=== PATIENT | male | born 1960 | race African-American/Black ===

== ENCOUNTER 2022-08-03 07:47 | Emergency (ER) | payer BC, SELFPAY ==
[2022-08-03 07:56] VITALS: BP 145/79; PULSE 98; RESP 18; TEMP 37.6; O2SAT 96; BMI 33.1
--- NOTE | 2022-08-03 08:06 | ED_ITS ---
HPI - General Adult General Chief complaint: Cough Stated complaint: Tightness in chest and bad cough Time Seen by Provider: 08/03/22 07:59 History of Present Illness HPI narrative: This 61-year-old male comes in reporting 2 days of harsh cough and chest congestion. He does not report any fever or shortness of breath. He does arrive with a temperature of 99.7?. Related Data Home Medications Medication Instructions Recorded Confirmed amlodipine 10 mg tablet mg 08/03/22 atorvastatin 20 mg tablet mg 08/03/22 famotidine 40 mg tablet mg 08/03/22 glimepiride 2 mg tablet mg 08/03/22 losartan 25 mg tablet mg 08/03/22 metformin 1,000 mg tablet mg 08/03/22 pantoprazole 40 mg tablet,delayed mg PO 08/03/22 release potassium chloride 10 mEq meq PO 08/03/22 tablet,extended release Previous Rx's Medication Instructions Recorded acetaminophen 300 mg-codeine 30 mg 1 tab PO Q6H PRN pain #20 tabs 08/03/22 tablet oseltamivir 75 mg capsule (Tamiflu) 75 mg PO BID 5 days #10 caps 08/03/22 Allergies Allergy/AdvReac Type Severity Reaction Status Date / Time No Known Drug Allergies Allergy Verified 08/03/22 07:59 Review of Systems Status of ROS: Reports: 10 or more systems reviewed and unremarkable except as noted in History and below Narrative: Constitutional: No fevers, no weight gain or loss. Eyes: No discharge. No vision changes. HENT: No congestion, no sore throat, no ear pain. Cardiovascular: No palpitations. Respiratory: No shortness of breath, no wheezes. Frequent painful cough. Gastrointestinal: No abdominal pain, no vomiting, no diarrhea. Genitourinary: No dysuria, no hematuria. Musculoskeletal: Normal range of motion. Skin: No rashes, no pruritis. Neurological: No dizziness, weakness, sensory change, speech change. Endo/Heme/Allergies: No bruising or bleeding. No polydipsia. Pysch: no suicidality, no anxiety, no insomnia. All other systems reviewed and are negative. [facility] Social History Do you use any of these nicotine containing products: None Non-prescribed substance use: denies use Exam Narrative: Exam Narrative: Constitutional: Well-developed, well-nourished, no acute distress. HEENT: Normocephalic, atraumatic. Neck: Normal range of motion. Nontender. Supple. Heart: Regular. No murmurs. Normal rate. Intact distal pulses. Lungs: Clear to auscultation. No chest discomfort. No wheezes, rhonchi, or rales. Abdomen: Normal bowel sounds. Nontender. No rebound tenderness. Genitalia: Deferred. Back: No midline tenderness. Normal range of motion. Extremities: Normal range of motion. No injury. Skin: Intact. No rash. Warm. No erythema or pallor. Neurologic: No altered sensation. No weakness. Alert and oriented. Psychiatric: No suicidality. No anxiety or depression. No insomnia. Nursing notes and vitals signs are reviewed. Const: Vital Signs, click to edit/add: Vital Signs - 24 hr 08/03/22 07:56 Temperature 99.7 F H Pulse Rate [Right Pulse Oximeter] 98 Respiratory Rate 18 Blood Pressure [Ri ght Upper Arm] 145/79 H Pulse Oximetry 96 Oxygen Delivery Me thod Room Air Course Vital Signs Vital signs: Initial Vital Signs Temperature 99.7 F H 08/03/22 07:56 Temperature Source Temporal Artery Scan 08/03/22 07:56 Pulse Rate 98 08/03/22 07:56 Respiratory Rate 18 08/03/22 07:56 Blood Pressure 145/79 H 08/03/22 07:56 Blood Pressure Mean 101 08/03/22 07:56 Blood Pressure Position Sitting 08/03/22 07:56 Pulse Oximetry 96 08/03/22 07:56 Oxygen Delivery Method 08/03/22 07:56 Vital Signs Temperature 99.7 F H 08/03/22 07:56 Pulse Rate 98 08/03/22 07:56 Respiratory Rate 18 08/03/22 07:56 Blood Pressure 145/79 H 08/03/22 07:56 Pulse Oximetry 96 08/03/22 07:56 Oxygen Delivery Method 08/03/22 07:56 Temperature 99.7 F H 08/03/22 07:56 Pulse Rate 98 08/03/22 07:56 Respiratory Rate 18 08/03/22 07:56 Blood Pressure 145/79 H 08/03/22 07:56 Pulse Oximetry 96 08/03/22 07:56 Oxygen Delivery Method 08/03/22 07:56 Medical Decision Making MDM Narrative Medical decision making narrative: This patient comes in with upper respiratory symptoms. Nasal pharyngeal swab returns positive for influenza A. This patient is a candidate for Tamiflu. This is prescribed along with Tylenol 3. Lab Data Labs: Lab Results 08/03/22 Range/Units 08:13 SARS-CoV-2 (PCR) Negative SARS-CoV-2 (Negative) Influenza Type A (PCR) POSITIVE PCR FLU A A (Negative) Influenza Type B (PCR) Negative PCR FLU B (Negative) RSV (PCR) Negative PCR RSV (Negative) Discharge Plan Discharge Clinical Impression: Influenza A Patient Disposition: Home, Self-Care Condition: Unchanged Additional Instructions: Take medication as prescribed. Follow up with MD or return if worsening. Prescriptions: New acetaminophen-codeine 300-30 mg tablet 1 tab PO Q6H PRN (Reason: pain) Qty: 20 0RF oseltamivir [Tamiflu] 75 mg capsule 75 mg PO BID 5 Days Qty: 10 0RF No Action atorvastatin 20 mg tablet famotidine 40 mg tablet Label Comments: TAKE 1 TABLET BY MOUTH DAILY potassium chloride 10 mEq tablet extended release PO glimepiride 2 mg tablet amlodipine 10 mg tablet pantoprazole 40 mg tablet,delayed release (DR/EC) PO metformin 1,000 mg tablet losartan 25 mg tablet Follow Up/Referrals: Provider,Not a Local [Primary Care Provider] - Stand Alone Forms: [employer] Info Instructions
[2022-08-03 09:10] LABS: PCR FLU A POSITIVE PCR FLU A (Negative); PCR FLU B Negative PCR FLU B (Negative); PCR RSV Negative PCR RSV (Negative)
[2022-08-03 09:12] LABS: SARS PCR* Negative SARS-CoV-2 (Negative)
== END 2022-08-03 09:55 | disposition home or self-care (01) ==
PROVIDERS: Emergency Provider Emergency Medicine Emergency Medical Services
DX: J09.X2 Influenza due to identified novel influenza A virus with other respiratory manifestations (principal)
CPT/HCPCS: 87502; 87634; 87635; 99283; 99284

== ENCOUNTER 2025-04-24 14:29 | Emergency (ER) | payer BC, SELFPAY ==
--- OUTSIDE RECORDS SUMMARY | 2016-08-28 15:48 | XMS_ITS | Continuity of Care Document ---
Author Name [facility] Organization [facility] Care Team Providers Care Quality Improvement Analyst Name Role Phone [facility] Unavailable Unavailable Problems Combined list of problems from [facility] and [facility] facilities. It does not include entries that were removed or entered in error. Problem Status Onset Date Problem Type Date of Resolution Comments Source Diabetes mellitus [facility] Gastro-esophageal reflux disease Active Condition [facility] Hyperlipidemia Active Condition [facility] Hypertensive disorder Active Condition [facility] Allergies, Adverse Reactions, Alerts Combined list of allergies from [facility] and [facility] facilities. It does not include entries that were removed or entered in error. Substance Category Reaction Severity Reaction type Status Date Reported Comments Source BENZONATATE Propensity to adverse reactions to drug (finding) Swelling of upper limb MODERATE active 6 [facility] LISINOPRIL Propensity to adverse reactions to drug (finding) Lip swelling active 7 [facility] Social History Combined list of available smoking, tobacco, and other social history from [facility] and [facility] facilities. Social History Type Response Date Comment Sourc e Tobacco smoking status NHIS LIFETIME NON-TOBACCO USER 04/02/2016 [facility]
--- OUTSIDE RECORDS SUMMARY | 2016-08-28 15:48 | XMS_ITS | Continuity of Care Document ---
Author Name [facility] Organization [facility] Care Team Providers Care Therapist Radiation Name Role Phone [facility] Unavailable Unavailable Problems Combined list of problems from [facility] and [facility] facilities. It does not include entries that were removed or entered in error. Problem Status Onset Date Problem Type Date of Resolution Comments Source Diabetes mellitus Active [facility] Gastro-esophageal reflux disease Active Condition [facility] Hyperlipidemia Active Condition [facility] Hypertensive disorder Active Condition [facility] Allergies, Adverse Reactions, Alerts Combined list of allergies from [facility] and [facility] facilities. It does not include entries that were removed or entered in error. Substance Category Reaction Severity Reaction type Status Date Reported Comments Source BENZONATATE Propensity to adverse reactions to drug (finding) Swelling of upper limb MODERATE active 6 [facility] LISINOPRIL Propensity to adverse reactions to drug (finding) Lip swelling active 7 [facility] Social History Combined list of available smoking, tobacco, and other social history from [facility] and [facility] facilities. Social History Type Response Date Comment Sourc e Tobacco smoking status NHIS LIFETIME NON-TOBACCO USER 04/02/2016 [facility]
--- OUTSIDE RECORDS SUMMARY | 2021-01-09 23:30 | XMS_ITS | Continuity of Care Document ---
Author Organization [facility] Address [address] [address] [place] [address] Phone Care Team Providers Care Manager Shell Name Role Phone No Information Unavailable Unavailable Medications Medication Instructions Dosage Effective Dates (start - stop) Status Comments amlodipine 10 mg tablet take 1 tablet by oral route every day 10 MG - Active atorvastatin 10 mg tablet take 1 tablet by oral route every day 10 MG - Active Flonase 50 mcg/actuation nasal spray,suspension spray 2 spray by Intranasal route every day in each nostril 2 spray - Active Prilosec 40 mg Cap take one tablet po qday. - Active Procedures Procedure Date Colonoscopy Flex; W/remov Les- 14 Ugi Endo; W/bx 1/mx Level Iv-surg Path Gross/micro 14 Ugi Endo; W/bx 1/mx Level Iv-surg Path Gross/micro 09 Ugi Endo; W/bx 1/mx Level Iv-surg Path Gross/micro 07 Advance Directives Directive Yes / No Effective Date File Name No Information Encounters Encounter Description Practice Location Reason(s) For Visit Diagnoses Date Provider Providers Copied on Encounter [facility], [address] [address], [place], [id number], tel:[phone] No Information No Information [facility], [address] [address], [place], [id number], [place] tel:[phone] [facility] Colon polypDiverticulo sis of colon w/o diverticulitisBa rrett's esophagusHiatal herniaColon Cancer ScreeningHiatal HerniaBarrett's EsophagusBenign Neoplasm Colon 4 No Information Referring Provider: Waldo Mcclendon MD, [address], [place], [address]. tel:[phone] [facility] [address], [address] [address], [place], [place], [id number], tel:[phone] [facility] Hiatal HerniaBarrett's EsophagusBarrett 's EsophagusHiatal Hernia [address]. [address] [place] [address], [id number], [place]. tel:[phone] Referring Provider: Waldo Mcclendon MD, [address], [place], [address]. tel:[phone] [facility], [address] [address], [place], [place], [id number], [place] tel:[phone] [facility] Vogel's EsophagusHiatal HerniaGastroesop hageal Reflux No Information Referring Provider: Waldo Mcclendon MD, [address], [place], [address]. tel:[phone] Family History Family Member Type Diagnosis Age At Onset Daughter Problem (finding) Alive and well Father Problem (finding) Mother Problem (finding) Son Problem (finding) Alive and well Sister Problem (finding) Brother Problem (finding) Alive and well Payers Payer name Insurance type Covered republican ID Authoriza tion(s) No Information Social History Type Description Quantity Date Captured Comments Sex Male Smoking Status No Information Chief Complaint And Reason For Visit No Information Reason For Referral Reason For Referral No Information History Of Present Illness Encounter Date Complaint History Of Prese nt Illness No Information Functional Status Date Functional Assessmen t No Information Instructions Date Instruction Additional Infor mation Colon Cancer Prevention Related to Colon polyp Colon Polyps Related to Colon polyp Diverticulosis/Diverticulitis Re lated to Colon polyp Hiatal Hernia Related to Colon polyp High Fiber Diet Related to Colon polyp Vogel's Esophagus Related to C olon polyp Assessments Type Assessment Date No Information Patient Care Teams Name Effective Dates (start - stop) Status Members No Information
--- OUTSIDE RECORDS SUMMARY | 2021-01-09 23:30 | XMS_ITS | Continuity of Care Document ---
Author Organization [facility] Address [address] [address] [place] [address] Phone Care Team Providers Care Primary Operator Name Role Phone No Information Unavailable Unavailable [...] Diagnoses Date Provider Providers Copied on Encounter [facility], [address] [address], [place], [id number], tel:[phone] No Information No Information [facility], [address] [address], [place], [id number], [place] tel:[phone] [facility] Colon polypDiverticulo sis of colon w/o diverticulitisBa rrett's esophagusHiatal herniaColon Cancer ScreeningHiatal HerniaBarrett's EsophagusBenign Neoplasm Colon 4 No Information Referring Provider: Waldo Mcclendon MD, [address], [place], [address]. tel:[phone] [facility], [address] [address], [place], [place], [id number], tel:[phone] [facility] Hiatal HerniaBarrett's EsophagusBarrett 's EsophagusHiatal Hernia [address]. [address] [place] [address], [id number], [place]. tel:[phone] Referring Provider: Waldo Mcclendon MD, [address], [place], [address]. tel:[phone] [facility] [employer] [facility], [address] [address], [place], [place], [id number], [place] tel:[phone] [facility] Vogel's EsophagusHiatal HerniaGastroesop hageal Reflux No Information Referring Provider: Waldo Mcclendon MD, [address], [place], [address]. tel:[phone] Family History Family Member Type Diagnosis Age [...]
--- OUTSIDE RECORDS SUMMARY | 2025-04-24 14:31 | XMS_ITS | Clinical Summary ---
Author Organization [facility] Address [address] [place] [address] Care Team Providers Care Information Security Engineer Name Role Phone Robert Garcia Unavailable [phone] [place] Unavailable Waldo Mcclendon MD Primary Care Provider Allergies Active Allergy Reactions Criticality Noted Date Comments Benzonatate Edema 03/18/2016 Lip Edema Lisinopril Angioedema 08/22/2016 Lip edema Medications blood-glucose meterIndications:D iabetes mellitus without complication (HC) Dispense meter, test strips, lancets covered by pt ins. 1 Device 0 6 Active blood-glucose meterIndications:T ype 2 diabetes mellitus without complication, without long-term current use of insulin (HC) Inject subcutaneous . Dispense meter, test strips, lancets covered by pt ins. 1 Device 0 Active lancetsIndications :Type 2 diabetes mellitus without complication, without long-term current use of insulin (HC) As directed. Test 3 times per day. 300 Each 3 0 Active Accu-Chek Guide test strips stripIndications:D iabetes mellitus without complication (HC) TEST 3 TIMES PER DAY 300 Each 3 2 Active fluticasone (50 mcg per actuation) nasal solution (FLONASE)Indicatio ns:Vasomotor rhinitis Inhale 1 [place] into affected nostril(s) once daily As needed 16 g 4 Active CPAPIndications:ob structive sleep apnea syndrome CPAP machine for home use at pressure 5-16, nasal mask x1/3month with nasal cushion x2/mo 1 Each 5 Active famotidine 40 mg tabletIndications: Chronic GERD,Hiatal hernia TAKE 1 TABLET BY MOUTH DAILY 90 Tablet 2 5 Active pantoprazole 40 mg delayed-release tabletIndications: Chronic GERD TAKE 1 TABLET BY MOUTH DAILY 90 Tablet 1 5 Active blood sugar diagnostic (Blood Glucose Test) stripIndications:T ype 2 diabetes mellitus without complication, without long-term current use of insulin (HC) Test 1 times per day. 100 Each 12 5 Active lancetsIndications :Type 2 diabetes mellitus without complication, without long-term current use of insulin (HC) Dispense item covered by pt ins. 100 Each 3 5 Active amLODIPine (NORVASC) 10 mg tabletIndications: Essential hypertension Take 1 Tablet (10 mg) by mouth once daily. 90 Tablet 4 5 Active atorvastatin (LIPITOR) 20 mg tabletIndications: Mixed hyperlipidemia Take 1 Tablet (20 mg) by mouth once daily. 90 Tablet 4 5 Active empagliflozin (Jardiance) 25 mg tabletIndications: Type 2 diabetes mellitus without complication, without long-term current use of insulin (HC) Take 1 Tablet (25 mg) by mouth once daily. 90 Tablet 1 5 Active glimepiride (AMARYL) 2 mg tabletIndications: Type 2 diabetes mellitus without complication, without long-term current use of insulin (HC) Take 1 Tablet (2 mg) by mouth once daily with a meal. 90 Tablet 1 5 Active potassium chloride (K-TAB) 10 mEq extended-release tabletIndications: Hypokalemia Take 3 Tablets (30 mEq) by mouth two times daily with meals. 540 Tablet 4 5 Active losartan (COZAAR) 50 mg tabletIndications: Persistent proteinuria Take 1 Tablet (50 mg) by mouth once daily. 90 Tablet 3 5 Active hydroCHLOROthiazid e 12.5 mg tabletIndications: Essential hypertension Take 1 Tablet (12.5 mg) by mouth once daily. 90 Tablet 3 5 Active lancetsIndications :Diabetes mellitus without complication (HC) Dispense item covered by pt ins. 100 Each 3 6 025 Discontin ued(Reord er (E-cancel not sent)) amLODIPine (NORVASC) 10 mg tabletIndications: Essential hypertension Take 1 Tablet (10 mg) by mouth once daily. 90 Tablet 4 4 025 Discontin ued(Reord er (E-cancel not sent)) atorvastatin (LIPITOR) 20 mg tabletIndications: Mixed hyperlipidemia Take 1 Tablet (20 mg) by mouth once daily. 90 Tablet 4 4 025 Discontin ued(Reord er (E-cancel not sent)) potassium chloride (K-TAB) 10 mEq extended-release tabletIndications: Low blood potassium Take 3 Tablets (30 mEq) by mouth two times daily with meals. 540 Tablet 4 4 025 Discontin ued(Reord er (E-cancel not sent)) empagliflozin (Jardiance) 25 mg tabletIndications: Type 2 diabetes mellitus without complication, without long-term current use of insulin (HC) Take 1 Tablet (25 mg) by mouth once daily. 90 Tablet 1 5 025 Discontin ued(Reord er (E-cancel not sent)) glimepiride (AMARYL) 2 mg tabletIndications: Type 2 diabetes mellitus without complication, without long-term current use of insulin (HC) Take 1 Tablet (2 mg) by mouth once daily with a meal. 90 Tablet 1 5 025 Discontin ued(Reord er (E-cancel not sent)) hydroCHLOROthiazid e 25 mg tabletIndications: Essential hypertension Take 0.5 Tablets (12.5 mg) by mouth once daily. 15 Tablet 5 025 Discontin ued(Reord er (E-cancel not sent)) losartan 25 mg tabletIndications: Persistent proteinuria Take 1 Tablet (25 mg) by mouth once daily. 90 Tablet 07/02/ 025 Discontin ued(Reord er (E-cancel not sent)) Active Problems Problem Noted Date Diagnosed Date Hypokalemia 04/08/2025 Hyperopia of both eyes with astigmatism and pres byopia 04/11/2022 Cortical senile cataract, bilateral 08/31/2019 Essential hypertension 2018 Type 2 diabetes mellitus without complications 0 03/28/2016 Mixed hyperlipidemia 12/14/2009 Hole, retinal 03/08/2009 Del Toro's esophagus 09/15/2008 Overview (05/29/2021): [place] [facility] Last EGD 2013 DEL TORO'S ESOPHAGUS- No Dysplasia. EGD EVERY 3 YEARS EGD 05/2021 Del Toro's, repeat EGD in 3 years Diaphragmatic hernia without mention of obstruction or gangrene 03/11/2007 Esophageal reflux 01/29/2006 Overview (09/01/2019): Last EGD 2013 Resolved Problems Problem Noted Date Diagnosed Date Resolved Date Encounters for other specifi ed administrative purpose(V68.89) 01/11/2014 09/01/2019 Achilles tendinitis 06/20/2013 09/01/19 20 Lung mass 07/13/2012 09/01/2019 HTN (hypertension) 08/26/2008 9 Overview (11/06/2009): Updated by system to replace inactive record Encounters Date Type Department Care Team Description 04/07/2025 2:40 PM CDT Office Visit [facility] [address] [place] [address] Waldo Mclcendon MD Diabetes 04/07/2025 Travel 04/03/2025 Refill [facility] [address] [place] [address] Waldo Mcclendon MD Refill Request (Hydrochlorothiazide) 02/20/2025 Refill [facility] [address] [place] [address] Waldo Mcclendon MD Refill Request (COZAAR 25MG) 02/17/[facility] [address] [place] [address] Waldo Mcclendon MD Refill Request (Pantoprazole) from Last 3 Months Immunizations Immunization Administration Dates Next Due COVID-19 vaccine (Abner-J& J) PF, MDV 11/17/2020 Hepatitis B (Adult) 02/23/2017,05/05/2016,2015 Influenza, IIV4 09/01/2022,,05/20/2020,2016,05/05/2016 Influenza, IIV4 (=>6mos) MDV 05/20/2020,07/09/20 19 Pneumococcal Conj 20-valent (Prevnar 20) 09/01/2022 Pneumococcal Poly,23-Valent (Pneumovax) 03/18/2016 Td, Preservative Free (age > = 7 Years) 02/23/2017 Tdap 02/04/2007 Family History * Patient is adopted Medical History Relation Name Comments Diabetes Brother Diabetes Mother Hypertension Mother Relation Name Status Comments Brother Alive Mother Social History Tobacco Use Types Packs/Day Years Used Date Smoking Tobacco: Never Smokeless Tobacco: Never Tobacco Cessation:Counseling Given: Yes Alcohol Use Standard Drinks/Week Comments No 0 (1 standard drink = 0.6 oz pur e alcohol) PHQ-2 Answer Date Recorded PHQ-2 TOTAL SCORE 0 03/25/2023 Social Connections Answer Date Recorded Do you often feel lonely or isolated from those around you? 0 11/25/2023 Financial Resource Strain Answer Date R ecorded Difficulty of Paying Living Expenses 3 11/25/2023 Difficulty of Paying Living Expenses Not on file 11/25/2023 Food Insecurity Answer Date Recorded Do you worry your food will run out before you are able to buy more? 1 11/25/2023 Transportation Needs Answer Date Record ed Does lack of transportation keep you from medica l appointments? 1 11/25/2023 Does lack of transportation keep you from work, meetings or getting things that you need? 1 11/25/2023 Housing Stability Answer Date Recorded What is your housing situation today? 1 11/25/2023 Utilities Answer Date Recorded Do you have trouble paying f or utilities (for example, heat, electricity, water, phone)? 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 Gender Identity Not on file Sexual Orientation Not on file Obstetrics History Last Filed Vital Signs Vital Sign Reading Time Taken Comments Blood Pressure 142/92 04/07/2025 3:08 PM CDT Pulse 55 06/16/2024 8:46 AM CDT Temperature 36.4 C (97.6 F) 06/16/2024 8:46 AM CDT Respiratory Rate 16 06/23/2023 9:25 AM CDT Oxygen Saturation 100% 06/16/2024 8:46 AM CDT Inhaled Oxygen Concentration - - Weight 89.8 kg (198 lb) 04/07/2025 3:08 PM CDT Height 170.2 cm (5' 7) 04/07/2025 3:08 PM CDT Body Mass Index 31.01 04/07/2025 3:08 PM CDT Plan of Treatment Upcoming Encounters Date Type Department Care Team (Late st Contact Info) Description 10/09/2025 4:00 PM HOT END OPERATOR Office Visit [facility] [address] [place] [address] Waldo Mcclendon MD [address] [facility] [address] [place], [place] [id number] Health Maintenance Due Date Last Done Comments HIV for age 15-65 1976 Hepatitis C screening for ag e 18-79 1979 Zoster (shingles) series for age 50+ (1 of 2) 2011 RSV vaccine for adults or (1 - Risk 60-74 years 1-dose series) 2021 Depression screening for age 12+ 03/25/2024 03/25/2023, 12/20/2020, 12/19/2020, Additional history exists COVID-19 vaccine series ( season) 2024 08/26/2021, 11/17/2020 Influenza Vaccine (#1) 2025 , 06/21/2021, 05/20/2020, Additional history exists BMI (ht and wt on same day) for age 18+ 04/07/2026 04/07/2025, 03/25/2023, 11/25/2021, Additional history exists Tetanus booster 02/23/2027 02/23/2017, 02/04/2007 Colonoscopy through age 75 06/23/202806/23, 06/23/2023, 06/23/2023, Additional history exists Lipids for age 45-75 04/07/2030 04/07/2025, 11/25/2023, 09/01/2022, Additional history exists Hepatitis B series for 19+ Completed 02/23, 05/05/2016, 03/18/2016 Pneumococcal series for age 50+ Completed , 03/18/2016 Procedures Procedure Name Priority Date/Time Associated Diagnosis Comments BASIC METABOLIC PANEL Routine 04/07/2025 2:54 PM CDT Hypokalemia LIPID PANEL W REFLEX MEASURED LDL Routine 04/07/2025 2:54 PM CDT Mixed hyperlipidemia HEMOGLOBIN A1C MONITORING (POCT) Routine 04/07/2025 2:53 PM CDT Type 2 diabetes mellitus without complication, without long-term current use of insulin (HC) COLONOSCOPY SCREENING Routine 06/23/2023 7:57 AM CDT History of colon polyps from Last 3 Months or Most Recently Relevant to Health Maintenance Results * (ABNORMAL) LIPID PANEL W REFLEX MEASURED LDL (04/07/2025 2:54 PM CDT) CHOLESTEROL, TOTAL 216(H) <200 mg/dL [facility] HDL CHOLESTEROL 52 > OR = 40 mg/dL [facility] TRIGLYCERIDES 117 <150 mg/dL [facility] LDL-CHOLESTEROL 141(H) mg/dL (calc) [facility] Comment: Reference range: <100 Desirable range <100 mg/dL for primary prevention; <70 mg/dL for patients with CHD or diabetic patients with > or = 2 CHD risk factors. LDL-C is now calculated using the Otto-Dutton calculation, which is a validated novel method providing better accuracy than the Friedewald equation in the estimation of LDL-C. Otto SS et al. MEREDITH. 2013;310(19): 8026-3453 (http://education.Tianji/faq/TOK836) CHOL/HDLC RATIO 4.2 <5.0 (calc) [facility] NON HDL CHOLESTEROL 164(H) <130 mg/dL (calc) [facility] Comment: For patients with diabetes plus 1 major ASCVD risk factor, treating to a non-HDL-C goal of <100 mg/dL (LDL-C of <70 mg/dL) is considered a therapeutic option. Blood BLOOD SPECIMEN / Unknown 04/07/2025 2:54 PM CDT 04/07/2025 2:55 PM CDT us Waldo Mcclendon MD CHEMISTRY Final R esult [facility] [address] [place] [address], [facility] [id number] [place] [address] * (ABNORMAL) BASIC METABOLIC PANEL (04/07/2025 2:54 PM CDT) [facility] GLUCOSE 65 65 - 99 mg/dL [facility] Comment: Fasting reference interval UREA NITROGEN (BUN) 14 7 - 25 mg/dL [facility] CREATININE 1.38(H) 0.70 - 1.35 mg/dL [facility] EGFR 57(L) > OR = 60 mL/min/1.7 3m2 [facility] BUN/CREATININE RATIO 10 6 - 22 (calc) [facility] SODIUM 142 135 - 146 mmol/L [facility] POTASSIUM 3.8 3.5 - 5.3 mmol/L [facility] CHLORIDE 107 98 - 110 mmol/L [facility] CARBON DIOXIDE 23 20 - 32 mmol/L [facility] ELECTROLYTE BALANCE 12 7 - 17 mmol/L (calc) [facility] CALCIUM 9.2 8.6 - 10.3 mg/dL [facility] Blood BLOOD SPECIMEN / Unknown 04/07/2025 2:54 PM CDT 04/07/2025 2:55 PM CDT Waldo Mcclendon MD CHEMISTRY Final R esult Performing Organization Address City/[facility]/ZIP Co de Phone Number [facility] [address] [place] [address], [place] [phone] [facility] [address] [place] [address] * HEMOGLOBIN A1C MONITORING (POCT) (04/07/2025 2:53 PM CDT) [facility] POC HEMOGLOBIN A1C 5.9 <6.0 % OF TOTAL HGB [facility] Comment: Any point of care results exhibiting inconsistency with the patient's clinical status should be repeated using a different testing method. Blood BLOOD SPECIMEN / Unknown 04/07/2025 2:53 PM CDT 04/07/2025 2:54 PM CDT Waldo Mcclendon MD CHEMISTRY Final R esult Performing Organization Address City/[facility] Co de Phone Number [address] [address], [address], [place] [address] * COLONOSCOPY (06/23/2023 8:30 AM CDT) 06/23/2023 8:30 AM CDT Narrative Transcriptions Otto Bernard MD - 06/23/2023 9:14 AM CDT Patient Name: Erwin Duque Procedure Date: 06/23/2023 Gender: Male Date of : 1960 Admit Type: Outpatient Procedure: Colonoscopy Proceduralist: Otto Bernard MD , Georgina Anaya (Nurse), Nena Jo RN (Nurse) Referring MD: Waldo Mcclendon Indications/Pre-Op Diagnosis: High risk colon cancer surveillance:Personal history of adenoma less than 10 mm in size, Last colonoscopy: May 2014 Medications: Fentanyl 100 micrograms IV, Midazolam 3 mgIV, The level of sedation administered wasmoderate Procedure Description: The patient had risks, benefits and alternatives explained to andgave informed consent. The patient had a stable cardiopulmonary status and judged an adequate candidate for conscious sedation. The endoscope [id number]-[id number] was passed through the anus andadvanced to the cecum, identified by appendiceal orifice and ileocecal valve.The colonoscopy was performed without difficulty. The patient toleratedthe procedure well. The quality of the bowel preparation was good. The ileocecal valve, appendiceal orifice, and rectum were photographed. Complications: No immediate complications. Estimated Blood Loss & Specimen: Estimated blood loss: none. Specimen collected - None Findings: The perianal and digital rectal examinations were normal. Scattered small-mouthed diverticula were found in the sigmoid colon, descending colon and ascending colon. The exam was otherwise without abnormality. Impressions/Post-Op Diagnosis: - Diverticulosis in the sigmoid colon, in the descending colon and in the ascending colon. - The examination was otherwise normal. - No specimens collected. Recommendation: - Patient has a contact number available for emergencies. The signsand symptoms of potential delayed complications were discussed with the patient. Return to normal activities tomorrow. Written discharge instructions were provided to the patient. - Resume previous diet. - Continue present medications. - Repeat colonoscopy in 7 years for surveillance. Moderate Sedation: A time out was performed before the procedure. Moderate (conscious) sedation was administered by the endoscopy nurse and supervised bythe endoscopist. The following parameters were monitored: oxygensaturation, heart rate, blood pressure, EKG, CO2, respiratory rate, adequacy of pulmonary ventilation and reponse to care. Please refer to the patient's medical record flowsheets and nursing notes for moderate sedation details. Total physician intraservice time was 16 minutes. Otto Bernard MD 06/23/2023 9:14:17 AM This report has been signed electronically. Note Initiated On: 06/23/2023 8:30 AM Procedure Code(s): --- Professional --- 89012, Colonoscopy, flexible; diagnostic, including collection of specimen(s) bybrushing or washing, when performed (separateprocedure) Diagnosis Code(s): --- Professional --- Z86.010, Personal history of colonicpolyps K57.30, Diverticulosis of large intestine without perforation or abscess withoutbleeding CPT copyright 2021 [employer]. All rights reserved. The codes documented in this report are preliminary and upon team member reviewmay be revised to meet current compliance requirements. Scope In: 8:51:34 AM Scope Withdrawal Time 0 hours 7 minutes 17 seconds Scope Out: 9:05:06 AM Otto Bernard MD PROCEDURE ORD Final Res ult from Last 3 Months or Most Recently Relevant to Health Maintenance Insurance [facility] [place] Care Teams Information Security Engineer Relationship Specialty Start Date End Date Waldo Mcclendon MD [address] [place] [address] PCP - General Family Practice 03/26/22 [place] [address] [place] [address] Ophthalmology Interpreter Translator 04/08/16 [place] [address] [place] [id number] Web Services Professional 04/11/16
[2025-04-24 14:38] VITALS: BP 157/95; BP 168/88; PULSE 95; RESP 16; TEMP 36.2; O2SAT 97; BMI 31.5
--- NOTE | 2025-04-24 14:45 | ED_ITS ---
HPI - Neck Pain/Injury General Time Seen by Provider: 14:45 Date Seen: 04/24/25 Chief Complaint: Neck Injury/Pain Stated Complaint: pain in neck Time Seen by Provider: 04/24/25 14:44 Source: patient and RN notes reviewed Mode of arrival: ambulatory Limitations: no limitations History of Present Illness HPI Narrative: This 64-year-old male is coming in with neck pain since Thursday. He thinks he awoke with that. Initially thought it was just a stiff neck from sleeping wrong. The pain is starting to go up into the back of his head. He would not state he has headache. He has noted no fevers, no history of trauma. He does have hypertension, diabetes, hyperlipidemia. He has not had a stroke before, no known vascular issues. He feels tension in the back of his head but not a headache. No visual changes. He has been able to ambulate, no pain into his arms, no numbness tingling weakness anywhere. Sometimes he will feel a sharp pain in feel a pulsating in his neck. He states the pain is 8/10. 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 Related Data Home Medications ?Medication ?Instructions ?Recorded ?Confirmed amlodipine 10 mg tablet mg 08/03/22 08/05/22 atorvastatin 20 mg tablet mg 08/03/22 08/05/22 famotidine 40 mg tablet mg 08/03/22 08/05/22 glimepiride 2 mg tablet mg 08/03/22 08/05/22 blood sugar diagnostic (Accu-Chek 04/24/25 04/24/25 Guide test strips) empagliflozin 25 mg tablet 25 mg PO DAILY 04/24/2509/17 (Jardiance) hydrochlorothiazide 12.5 mg tablet 12.5 mg PO DAILY 04/24/25 lancets (Accu-Chek Softclix 04/24/25 04/24/25 Lancets) losartan 50 mg tablet 50 mg PO DAILY 04/24/2509/17 Allergies Allergy/AdvReac Type Severity Reaction Status Date / Time No Known Drug Allergies Allergy Verified 04/24/25 15:52 Review of Systems Status of ROS: Reports: 6 or more systems reviewed and unremarkable except as noted in History and below PFSH PFSH Social History Smoking Status: Never smoker Do you use any of these nicotine containing products: None Second hand tobacco smoke exposure: No How often do you have a drink containing alcohol: never How often do you have six or more drinks on one occasion: Never AUDIT-C Alcohol total score: 0 Non-prescribed substance use: denies use service: No Exam Const: Vital Signs, click to edit/add: Vital Signs - 24 hr 04/24/25 14:38 Temperature 97.2 F L Pulse Rate [Pulse Oximeter] 95 Respiratory Rate 16 Blood Pressure [Le ft Upper Arm] 157/95 H Blood Pressure [Ri ght Upper Arm] 168/88 H Pulse Oximetry 97 Oxygen Delivery Me thod Room Air This 64-year-old male is alert, interactive, no apparent distress, sitting in exam room 3. He moves his body rather than turning his neck, is holding his neck stiffly. Pupils equal round reactive, sclerae clear, extraocular muscles intact. Symmetrical facial function, speech normal. No midline tenderness of his neck. He feels pain more so in some of his left neck muscles, at the distal sternocleidomastoid muscle he feels some pain. I feel no neck masses, no adenopathy, no thyromegaly masses or nodules. Lungs are clear, good air entry, no wheezing crackles, no tachypnea, no accessory muscle use. CV irregular rate and rhythm, no murmur, normal S1-S2 P ambulatory into the ED of his own accord, no concerns with this gait. Strength is 5/5 and symmetric in upper extremities, normal sensation. Documenting provider has reviewed patient's vital signs: yes Course Course ED Course: This patient is coming in with atraumatic neck pain. Given his comorbidities and his age, do need to consider things like dissection in vascular etiologies. He is having no evidence of any cervical radiculopathy. This could be musculoskeletal. He is on a cholesterol medicine with a statin, will get a total CK. His pain does not seem to be as consistent with a severe pain with a myositis from a statin that I have seen before but certainly still could be a potential etiology. This may just be musculoskeletal but he has comorbidities in with age do think we need to rule out vascular etiologies. If her doing the CT imaging of the vessels, will reconstruct and look at his cervical spine as well. Will obtain baseline labs. Reevaluation(s) Time of Reevaluation #1: 16:39 Reevaluation #1: Have reviewed CT reports. No evidence of any vascular anomaly or concerns on preliminary report of his CT angio. He does have degenerative disease in his cervical spine but there is no acute bony abnormality. He has no clinical symptoms of radiculopathy. This seems to be an acquired torticollis at this time. We did review his hypokalemia, he states his doctor has put him on potassium pills. We reviewed the diuretic might be the causative etiology. He vaguely thinks that they are considering maybe taking him off this. I have advised him that he needs follow-up with his primary. Will give him some effervescent potassium. I think he may benefit from a muscle relaxant. Will give a 1 time dose of IV Toradol. Will add in a muscle relaxant to his regimen, can follow up in clinic, outpatient physical therapy can be considered. Flexeril from [facility] will be ordered, 15 tablets is the smallest amount available. Vital Signs Vital signs: Initial Vital Signs Temperature 97.2 F L 04/24/25 14:38 Temperature Source Temporal Artery Scan 04/24/25 14:38 Pulse Rate 95 04/24/25 14:38 Respiratory Rate 16 04/24/25 14:38 Blood Pressure 168/88 H 04/24/25 14:38 Blood Pressure Mean 114 H 04/24/25 14:38 Blood Pressure Position Sitting 04/24/25 14:38 Pulse Oximetry 97 04/24/25 14:38 Oxygen Delivery Method Room Air 04/24/25 14:38 Vital Signs Temperature 97.2 F L 04/24/25 14:38 Pulse Rate 95 04/24/25 14:38 Respiratory Rate 16 04/24/25 14:38 Blood Pressure 168/88 H 04/24/25 14:38 Pulse Oximetry 97 04/24/25 14:38 Oxygen Delivery Method Room Air 04/24/25 14:38 Temperature 97.2 F L 04/24/25 14:38 Pulse Rate 95 04/24/25 14:38 Respiratory Rate 16 04/24/25 14:38 Blood Pressure 168/88 H 04/24/25 14:38 Pulse Oximetry 97 04/24/25 14:38 Oxygen Delivery Method Room Air 04/24/25 14:38 MDM - Neck Pain/Injury Differential Diagnosis Differential diagnosis: Likely disc disorder of cervical region, whiplash injury to neck, closed subluxation of cervical spine, fracture of cervical spine without lesion of spinal cord, cervical radiculopathy, vertebral artery dissection, torticollis, cervical spondylosis and strain of neck muscle Lab Data Attestation: I reviewed the patient's lab results. Labs: Lab Results 04/24/25 04/24/25 Range/Units 14:56 15:00 WBC 9.82 (4.50-11.00) K/uL RBC 5.55 (4.30-5.90) m/uL Hgb 15.8 (13.5-17.5) gm/dL Hct 46.4 (37.0-53.0) % MCV 84 (80-100) fL MCH 29 (26-34) pg MCHC 34 (32-36) gm/dL RDW Coeff of Alexandra 12.7 (11.5-15.5) % Plt Count 277 (140-440) K/uL Neut % (Auto) 61.5 (42.0-72.0) % Lymph % (Auto) 25.1 (20-44) % [place] % (Auto) 11.7 H (0.0-11.0) % Eos % (Auto) 1.1 (0.0-7.0) % Baso % (Auto) 0.2 (0.0-3.0) % Neut # (Auto) 6.04 (1.7-7.0) K/uL Lymph # (Auto) 2.46 (0.90-2.90) K/uL [place] # (Auto) 1.10 H (0.00-0.90) K/UL Eos # (Auto) 0.11 (0.00-0.50) K/uL Baso # (Auto) 0.02 (0.00-0.30) K/uL Abs Immat Gran (auto) 0.04 (0.00-0.30) K/uL Imm/Tot Granulo (auto) 0.4 % D-Dimer Quant (PE/DVT) < 0.27 (0.00-0.50) ug/ml Sodium 141 (135-149) mmol/L Potassium 3.1 L (3.6-5.1) mmol/L Chloride 103 (96-114) mmol/L Carbon Dioxide 28 (20-32) mmol/L Anion Gap 10 (7-15) mEq/L BUN 14 (7-30) mg/dL Creatinine 1.3 (0.5-1.5) mg/dL Estimated Creat Clear 52.49 Estimated GFR 62 ml/min Glucose 127 H (60-115) mg/dL Calcium 9.6 (8.4-10.6) mg/dL Total Creatine Kinase 265 H (54-186) U/L C-Reactive Protein 1.2 H (0.5-1.0) mg/dL POC Creatinine 1.5 H (0.6-1.3) mg/dl Imaging Data CT cervical spine: Attestation: I have reviewed the pertinent imaging results. Radiologist's impression: Patient: JUSTIN BELL Facility:?[facility] Patient ID:?[id number] Site Patient ID:?[id number]. Site :?[id number] Study:?CT-Spine Cervical W/O-04/24/2025 4:01:11 PM Ordering Physician:?Shahla Phillips Final Report: Indication: Severe left-sided neck pain. Technique: Noncontrast CT images of the cervical spine. Comparison: None. Findings: Mild reversal of the cervical lordosis. Mild leftward cervical curvature. No acute fracture or traumatic subluxation. Mild retrolisthesis of C5 on C6. Severe multilevel disc height loss. Multilevel posterior disc osteophyte complexes contributing to moderately severe spinal canal stenosis from C3-4 through C5-6. Multilevel uncinate spurring and facet arthropathy contributing to advanced neural foraminal stenosis bilaterally C3-4, C4-5, and C5-6. No concerning opacities in the lung apices. Impression: 1. No acute fracture or traumatic subluxation. 2. Advanced multilevel cervical spondylosis. Please note that all CT scans at this facility use dose modulation, iterative reconstruction, and/or weight-based dosing when appropriate to reduce radiation dose to as low as reasonably achievable. Dictated by Roberto Nelson MD @ 04/24/2025 4:27:29 PM (Electronic Signature) CT angio neck: Attestation: I have reviewed the pertinent imaging results. Radiologist's impression: Patient: JUSTIN BELL Facility:?[facility] Patient ID:?[id number] Site Patient ID:?[id number]. Site :?[id number] Study:?CT-Neck Angio W/ 95CC [id number]/1/2025 4:02:49 PM Ordering Physician:?Shahla Phillips Preliminary Report: No cervical arterial stenosis or dissection. Read by:?Roberto Nelson MD @04/24/2025 4:23:15 PM Discharge Plan Discharge Clinical Impression: Acute torticollis, Hypokalemia Patient Disposition: Home, Self-Care Condition: Stable Instructions: Potassium Content of Foods List (ED), Hypokalemia (ED), Spasmodic Torticollis (ED) Additional Instructions: Use Tylenol 1000 mg 3 times a day baseline for pain. Have written for Flexeril muscle relaxant 10 mg up to 3 times a day as needed, 15 tablets from [facility]. Can try ice packs or heat to your neck, use whichever feels better. You also had low potassium here, do recommend that you follow-up with your primary regarding this. This could be associated with muscle issues/cramping. Discuss with your primary care provider about continuing the diuretic or going on something else. You may benefit from physical therapy with your neck, your primary provider can try to get this scheduled. The neck muscle will take some time to feel better, there is unfortunately no fix or anything that makes this go away immediately. Thankfully we did not see any evidence of any vascular issue like dissection or aneurysm in your neck as the cause of these symptoms. Activity Level: Activity as Tolerated Prescriptions: No Action atorvastatin 20 mg tablet famotidine 40 mg tablet Patient Comments: TAKE 1 TABLET BY MOUTH DAILY glimepiride 2 mg tablet amlodipine 10 mg tablet losartan 50 mg tablet 50 mg PO DAILY (DME) Accu-Chek Guide test strips Strip MISCELLANEOUS DAILY (DME) lancets [Accu-Chek Softclix Lancets] Misc MISCELLANEOUS DAILY hydrochlorothiazide 12.5 mg tablet 12.5 mg PO DAILY Jardiance 25 mg tablet 25 mg PO DAILY Follow Up/Referrals: Provider,Not a Local [Primary Care Provider, Family Practice] Stand Alone Forms: MyHealth Info Instructions
--- NOTE | 2025-04-24 14:54 | CRLHL7_ITS ---
For Patients: As a result of the Century Cures Act, medical imaging exams and procedure reports are released immediately into your electronic medical record. You may view this report before your referring provider. If you have questions, please contact your health care provider. INDICATION: Severe neck pain. TECHNIQUE: CTA neck with contrast bolus tracking, 3D angiographic rendering using maximum intensity projection (MIP) and images permanently archived. FINDINGS: There is no significant carotid artery stenosis or dissection. There is no significant vertebral artery stenosis or dissection. Degenerative changes are noted in the cervical spine. IMPRESSION: No significant carotid or vertebral artery stenosis or dissection. Please note that all CT scans at this facility use dose modulation, iterative reconstruction, and/or weight-based dosing when appropriate to reduce radiation dose to as low as reasonably achievable. Dictated by Javad Roman MD @ 04/24/2025 7:58:41 PM (Electronically Signed)
--- NOTE | 2025-04-24 14:55 | CRLHL7_ITS ---
For Patients: As a result of the Century Cures Act, medical imaging exams and procedure reports are released immediately into your electronic medical record. You may view this report before your referring provider. If you have questions, please contact your health care provider. Indication: Severe left-sided neck pain. Technique: Noncontrast CT images of the cervical spine. Comparison: None. Findings: Mild reversal of the cervical lordosis. Mild leftward cervical curvature. No acute fracture or traumatic subluxation. Mild retrolisthesis of C5 on C6. Severe multilevel disc height loss. Multilevel posterior disc osteophyte complexes contributing to moderately severe spinal canal stenosis from C3-4 through C5-6. Multilevel uncinate spurring and facet arthropathy contributing to advanced neural foraminal stenosis bilaterally C3-4, C4-5, and C5-6. No concerning opacities in the lung apices. Impression: 1. No acute fracture or traumatic subluxation. 2. Advanced multilevel cervical spondylosis. Please note that all CT scans at this facility use dose modulation, iterative reconstruction, and/or weight-based dosing when appropriate to reduce radiation dose to as low as reasonably achievable. Dictated by Roberto Nelson MD @ 04/24/2025 4:27:29 PM (Electronically Signed)
[2025-04-24 15:24] LABS: Creatinine, Point-of-Care* 1.5 mg/dl (0.6-1.3)
[2025-04-24 15:55] LABS: Hematocrit 46.4 % (37.0-53.0); Hemoglobin* 15.8 gm/dL (13.5-17.5); Immature Granulocytes Abs Auto 0.04 K/uL (0.00-0.30); Immature Granulocytes Pct Auto 0.4 %; Lymphocytes Absolute Auto 2.46 K/uL (0.90-2.90); Mean Corpuscular HGB Conc 34 gm/dL (32-36); Mean Corpuscular Hemoglobin 29 pg (26-34); Mean Corpuscular Volume 84 fL (80-100); RDW Coefficient of Variation % 12.7 % (11.5-15.5); Red Blood Count 5.55 m/uL (4.30-5.90); White Blood Count* 9.82 K/uL (4.50-11.00)
[2025-04-24 15:58] LABS: Slide Review Reflex No
[2025-04-24 16:05] LABS: Chloride* 103 mmol/L (96-114); Potassium* 3.1 mmol/L (3.6-5.1); Sodium* 141 mmol/L (135-149)
[2025-04-24 16:08] LABS: Blood Urea Nitrogen* 14 mg/dL (7-30); Creatine Kinase* 265 U/L (54-186); Creatinine* 1.3 mg/dL (0.5-1.5); Est. Creatinine Clearance* 52.49; Estimated Glomerular Filt Rate 62 ml/min
[2025-04-24 16:09] LABS: Anion Gap 10 mEq/L (7-15); Calcium* 9.6 mg/dL (8.4-10.6); Carbon Dioxide* 28 mmol/L (20-32); Glucose* 127 mg/dL (60-115)
[2025-04-24 16:31] LABS: D Dimer Quantitative* < 0.27 ug/ml (0.00-0.50)
[2025-04-24] MEDS: POTASSIUM BICARB 25 MEQ EFFERVESCENT TAB PO (16:44)
== END 2025-04-24 17:00 | disposition home or self-care (01) ==
PROVIDERS: Emergency Provider Family Medicine
DX: M43.6 Torticollis (principal); E87.6 Hypokalemia
CPT/HCPCS: 36415; 70498; 72125; 80048; 82550; 82565; 85025; 85379; 86140; 96374; 99284; 99285; A9270; J1885; Q9967